=== PATIENT | female | born 1975 | race Caucasian/White ===

== ENCOUNTER → 2024-04-29 | Outpatient (CLI) | payer OTHER, SELFPAY ==
[2024-05-06 20:08] LABS: HPV APTIMA, High Risk Positive (Negative); HPV Genotype 16, Aptima Negative (Negative); HPV Genotype 18,45 Aptima Negative (Negative)
== END | disposition home or self-care (01) ==
PROVIDERS: PCP Internal Medicine; Referring Provider Registered Nurse; Visit Provider Registered Nurse
DX: Z12.4 Encounter for screening for malignant neoplasm of cervix (principal)
CPT/HCPCS: 87624; 88175; G0145

== ENCOUNTER → 2024-05-04 | Outpatient (CLI) | payer OTHER, SELFPAY ==
--- NOTE | 2024-05-04 17:34 | US_ITS ---
EXAM: US PELVIS TRANSABDOMINAL AND TRANSVAGINAL, COMPLETE CLINICAL INDICATION: AUB TECHNIQUE: Transabdominal and transvaginal pelvic ultrasound was performed with grayscale and color Doppler imaging. Transvaginal imaging was used for better evaluation of the endometrium and adnexa. COMPARISON: No relevant prior studies available. FINDINGS: UTERUS/CERVIX: Uterus measures 9.8 x 4.6 x 6.4 cm. The endometrium measures 1.3 cm. There is a 9 x 8 x 8 mm hypoechoic structure in the uterus compatible with fibroid. Anteverted. RIGHT OVARY: The right ovary measures 2.8 x 1.7 x 1.9 cm. Blood flow is present in the right ovary. LEFT OVARY: The left ovary measures 4.8 x 1.8 x 4.1 cm. There is a 3.7 x 1.5 x 3.1 cm anechoic structure in the left ovary compatible with a cyst. Blood flow is present in the left ovary. FREE FLUID: None. BLADDER: The bladder measures 6.4 x 7.0 x 10.8 cm for volume of 205 mL. US/Pelvic w/ Transvaginal IMPRESSION: 1. Left ovarian cyst. There is a small uterine fibroid. No other acute abnormalities. 2. Thickening of the endometrium which may be due to the patient''s menstrual cycle. Electronically Signed: Jose De Jesus Olsen MD at 23:58 EDT ,
== END | disposition home or self-care (01) ==
LOC: US 17:31
PROVIDERS: PCP Internal Medicine; Referring Provider Registered Nurse; Visit Provider Registered Nurse
DX: N93.9 Abnormal uterine and vaginal bleeding, unspecified (principal)
CPT/HCPCS: 76830; 76856